=== PATIENT | female | born 1995 | race Two or more races ===

== ENCOUNTER 2023-11-18 23:58 | Emergency (ER) | payer MEDICAID ==
[~2023-11-18] VITALS: Ht 160 cm; Wt 79.0 kg
[2023-11-19] MEDS: DexAMETHasone SOD PHOS 10MG/1ML VIAL INJ IM ONE (00:30)
[2023-11-19 00:47] LABS: Urine Bacteria None Seen /hpf (None Seen)
[2023-11-19 00:52] LABS: Basophils # (auto) 0.1 10 ^3/uL (0-0.2); Basophils % (auto) 0.4 % (0.0-2.0); Eosinophils # (auto) 0.3 10 ^3/uL (0-0.8); Eosinophils % (auto) 2.4 % (0.0-7.0); Hematocrit 38.3 % (36.0-46.0); Hemoglobin 13.4 g/dL (12.2-16.2); Lymphocytes # (auto) 1.9 10 ^3/uL (0.4-5.4); Lymphocytes % (auto) 15.6 % (10.0-50.0); Mean Corpuscular Hemoglobin 31.9 pg (28.0-32.0); Mean Corpuscular Hgb Conc. 34.9 g/dL (32.0-36.0); Mean Corpuscular Volume 91.2 fL (80.0-100.0); Monocytes # (auto) 1.2 10 ^3/uL (0-1.3); Neutrophils # (auto) 8.6 10 ^3/uL (1.6-8.6); Neutrophils % (auto) 71.6 % (37.0-80.0); Nucleated Red Blood Cells % 0.1 %; Red Cell Distribution Width 12.1 % (11.8-14.3)
[2023-11-19 01:08] LABS: Alanine Aminotransferase 44 U/L (7-40); Albumin 4.5 g/dL (3.2-4.8); Alkaline Phosphatase 63 U/L (46-116); Anion Gap 7 (5-15); Aspartate Aminotransferase 19 U/L (13-40); BUN/Creatinine Ratio 12.8 (10.0-20.0); Blood Urea Nitrogen 10 mg/dL (9-23); Calcium 9.5 mg/dL (8.7-10.4); Carbon Dioxide 23 mmol/L (20-30); Chloride 106 mmol/L (98-107); Glucose 116 mg/dL (74-106); Potassium 3.9 mmol/L (3.5-5.1); Sodium 136 mmol/L (136-145)
[2023-11-19 01:09] LABS: Urine Blood 3+ /uL (Negative); Urine Clarity Ex.Turbid (Clear); Urine Color Light-Red (Yellow); Urine Mucus FEW (None Seen); Urine Protein, UAD 1+ (Negative); Urine Specific Gravity 1.038 (1.001-1.035); Urine Urobilinogen Normal (Negative); Urine WBC 207 /hpf (0 - 5); Urine WBC Clumps PRESENT /hpf (None Seen); Urine pH 5.5 (5.0-9.0)
[2023-11-19 01:09] LABS: Bilirubin, Total 0.8 mg/dL (0.2-1.0)
[2023-11-19] MEDS: IPRATROPIUM BROM 0.5 MG/2.5ML INH SOL NEB ONE (01:09)
[2023-11-19] MEDS: ALBUTEROL SULF 2.5 MG/0.5ML(0.5%) NEB SOLN NEB ONE (01:09)
[2023-11-19] MEDS: ACETAMINOPHEN 500 MG TAB PO ONE (01:30)
[2023-11-19] MEDS: SULFAMETHOX W/TRIMETH(800/160MG) DS TAB PO ONE (01:30)
[2023-11-19] MEDS ORDERED: ALBU108A5 IN (01:34)
[2023-11-19] MEDS ORDERED: ACET500T58 PO (01:34)
[2023-11-19] MEDS ORDERED: BACDST PO (01:37)
[2023-11-19 02:41] VITALS: BP 147/90; PULSE 113; RESP 20; TEMP 100.4; O2SAT 98
== END 2023-11-19 02:40 | disposition home or self-care (01) ==
LOC: ER 23:58
DX: N93.8 Other specified abnormal uterine and vaginal bleeding (principal); R10.2 Pelvic and perineal pain; J06.9 Acute upper respiratory infection, unspecified; N39.0 Urinary tract infection, site not specified
CPT/HCPCS: 36415; 71045; 80053; 81001; 84702; 85025; 94640; 96372; 99284; J1100; J7644

== ENCOUNTER 2025-06-23 11:25 | Emergency (ER) | payer MEDICAID ==
[~2025-06-23] VITALS: Ht 160 cm; Wt 83.6 kg
[~2025-06-23 11:25] MED LIST: ACET500T58 PO; ALBU108A5 IN; BACDST PO
--- NOTE | 2025-06-23 11:34 | ECG ---
[facility] Test Date: 2025-06-23 Test Time: 11:32:02 Pat Name: STEPAN CARTY Department: Room: Gender: F Biology Intern: JACKIE : 1995 Requested By: JUSTINE MÉNDEZ Order Number: [id number] Reading MD: Sushil Blanco Measurements Intervals [place] Rate: 74 P: 28 ID: [id number] QRS: 35 QRSD: 87 T: 24 QT: 400 QTc: 444 Interpretive Statements Sinus rhythm Electronically Signed On 06-23-2025 15:09:59 PST by Sushil Blanco Please click the below link to view image of tracing.
--- NOTE | 2025-06-23 12:10 | DVH ---
CLINICAL HISTORY: chest pain TECHNIQUE: Single view of the chest was obtained. COMPARISON: XY CHEST PORTABLE on DOS: 11/19/23 FINDINGS: The heart size and pulmonary vasculature are normal. The lungs are clear. IMPRESSION: NO ACUTE CARDIOPULMONARY PROCESS.
--- NOTE | 2025-06-23 12:25 | ED.PDOC ---
HPI Comments 30 year old female presents to the ED with a chief compliant of chest pain onset 2 days. Patient states she has been experiencing chest pain as well as dizziness, nausea, sweats for the past 2 days. She describes chest pain as a burning sensation, radiates to her back and LT arm. Denies fever, chills, shortness of breath, numbness/tingling, headache, blurred vision, nausea, vomiting. No other symptoms or modifying factors present at this time. Chief Complaint: Chest Pain Time Seen by MD: 12:20 Reviewed Notes: Medications, Allergies Allergies: Coded Allergies: NO KNOWN ALLERGIES (Unverified , 11/19/23) Home Meds Active Scripts Sulfamethoxazole W/Trimethopri (Bactrim Ds Tablet) 1 Tab Tb, 1 TAB PO BID for 10 Days, #20 TAB Prov:PARTH HAZEL [facility] 11/19/23 Albuterol Sulfate (Albuterol Sulfate Hfa) 108 Mcg/Act Aer, 108 MCG IN Q4HP PRN, #1 AER Prov:PARTH HAZEL [facility] 11/19/23 Acetaminophen (Acetaminophen) 500 Mg Tab, 500 MG PO Q4HP PRN, #30 TAB Prov:PARTH HAZEL [facility] 11/19/23 Information Source: Patient Mode of Arrival: Ambulatory Severity: Moderate Timing: Days Duration: Since onset Prehospital treatment: None Location: Chest (L) Radiation: Back, Arm (L) Quality: Burning Onset: At Rest Cardiac Risk Factors: None PE Risk Factors: None History of: None Modifying Factors: Nothing Associated Signs and Symptoms: Back Pain Past Medical History PAST MEDICAL HISTORY: Denies Surgical History: Denies all surgeries 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 History Family History Family History: Reviewed,noncontributory to illness, No family hx of Cancer, No family hx of DM, No family hx of Heart susan, No family hx of HTN, No family hx ofKidney susan, No family hx of Liver susan, No family hx of Lung susan, No family hx of Stroke Social History Smoker: Non-Smoker Alcohol: Denies ETOH Use Drugs: Denies Drug Use Lives In: Home Constitutional: reports: sweats; denies: chills, diaphoresis, fatigue, fever, malaise, weakness, others EENTM: denies: blurred vision, double vision, ear bleeding, ear discharge, ear drainage, ear pain, ear ringing, eye pain, eye redness, hearing loss, mouth pain, mouth swelling, nasal discharge, nose bleeding, nose congestion, nose pain, photophobia, tearing, throat pain, throat swelling, voice changes, others Respiratory: denies: cough, hemoptysis, orthopnea, SOB at rest, shortness of breath, SOB with excertion, stridor, wheezing, others Cardiovascular: reports: chest pain; denies: dizzy spells, diaphoresis, Dyspnea on exertion, edema, irregular heart beat, left arm pain, lightheadedness, palpitations, PND, syncope, others Gastrointestinal: reports: nausea; denies: abdomen distended, abdominal pain, blood streaked bowels, constipated, diarrhea, dysphagia, difficulty swallowing, hematemesis, melena, poor appetite, poor fluid intake, rectal bleeding, rectal pain, vomiting, others Genitourinary: denies: abnormal vagina bleeding, burning, dyspareunia, dysuria, flank pain, frequency, hematuria, incontinence, pain, , vagina discharge, urgency, others Neurological: denies: dizziness, fainting, headache, left sided numbness, left sided weakness, numbness, paresthesia, pre-existing deficit, right sided numbness, right sided weakness, seizure, speech problems, tingling, tremors, weakness, others Musculoskeletal: reports: back pain, others (LT arm pain); denies: gout, joint pain, joint swelling, muscle pain, muscle stiffness, neck pain Integumetry: denies: bruises, change in color, change in hair/nails, dryness, l aceration, lesions, lumps, rash, wounds, others Allergic/Immunocompromised: denies: Difficulty Healing, Frequent Infections, Hives, Itching, others Hematologic/Lymphatic: denies: anemia, blood clots, easy bleeding, easy bruising, swollen glands, others Endocrine: denies: excessive hunger, excessive sweating, excessive thirst, excessive urination, flushing, intolerance to cold, intolerance to heat, unexplained weight gain, unexplained weight loss, others Psychiatric: denies: anxiety, bipolar disorder, depression, hopeless, panic disorder, schizophrenia, sleepless, suicidal, others All Other Systems: Reviewed and Negative Physical Exam General Appearance: Moderate Distress, Normal HEENT: Normal ENT Inspection, Pharynx Normal, TMs Normal Neck: Full Range of Motion, Non-Tender, Normal, Normal Inspection Respiratory: Chest Non-Tender, Lungs Clear, No Accessory Muscle Use, No Respiratory Distress, Normal Breath Sounds Cardiovascular: No Edema, No JVD, No Murmur, No Gallop, Normal Peripheral Pulses, Regular Rate/Rhythm Breast Exam: Deferred Gastrointestinal: No Organomegaly, Non Tender, No Pulsatile Mass, Normal Bowel Sounds, Soft Genitalia: Deferred Pelvic: Deferred Rectal: Deferred Extremities: No calf tenderness, Normal capillary refill, Normal inspection, Normal range of motion, Non-tender, No pedal edema Musculoskeletal : Apperance: Normal Neurologic: Alert, 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 Was a procedure done?: No CP Differential Dx Differential Diagnosis: A-fib, A-Flutter, Angina, Anxiety / Panic Attack, Atrial Dysrhythmia, Electrolyte Disorder X-Ray, Labs, Meds, VS Vital Signs Date Time Temp Pulse Resp B/P (MAP) Pulse Ox O2 Delivery O2 Flow Rate FiO2 06/23/25 16:10 131/91 06/23/25 15:36 97.9 106 20 119/80 (93) 99 97.9 06/23/25 13:14 98.1 70 16 129/61 (83) 100 98.1 06/23/25 12:34 69 06/23/25 12:25 74 06/23/25 11:32 74 06/23/25 11:28 98.2 77 16 124/83 96 98.2 Lab Test 06/23/25 14:20 06/23/25 12:46 06/23/25 11:37 Range/Units Urine Color Yellow Yellow Urine Clarity Turbid H Clear Urine pH 5.5 5.0-9.0 Urine Specific [place] 1.026 1.001-1.035 Urine Protein Trace H Negative Urine Ketones Negative Negative Urine Blood Negative Negative /uL Urine Nitrite Negative Negative Urine Bilirubin Negative Negative Urine Urobilinogen Normal Negative mg/dL Urine Leukocyte Esterase 2+ Negative /uL Urine RBC 5 0 - 4 /hpf Urine Microscopic WBC 7 H 0-5 /HPF Urine Squamous Epithelial Cells Mod <5 /hpf Urine Bacteria Few H None Seen /hpf Urine Mucus Few None Seen Urine Glucose Normal Normal mg/dL Troponin I High Sensitivity < 3 L < 3 L < 3 L </=34 ng/L White Blood Count 6.9 4.4-10.8 10^3/uL Red Blood Count 5.03 4.0-5.20 10^6/uL Hemoglobin 16.0 12.2-16.2 g/dL Hematocrit 46.5 H 36.0-46.0 % Mean Corpuscular Volume 92.3 80.0-100.0 fL Mean Corpuscular Hemoglobin 31.9 28.0-32.0 pg Mean Corpuscular Hemoglobin Concent 34.5 32.0-36.0 g/dL Red Cell Distribution Width 11.9 11.8-14.3 % Platelet Count 294 140-450 10^3/uL Mean Platelet Volume 7.9 6.9-10.8 fL Neutrophils (%) (Auto) 66.4 37.0-80.0 % Lymphocytes (%) (Auto) 25.8 10.0-50.0 % Monocytes (%) (Auto) 6.5 0.0-12.0 % Eosinophils (%) (Auto) 0.9 0.0-7.0 % Basophils (%) (Auto) 0.4 0.0-2.0 % Neutrophils # (Auto) 4.6 1.6-8.6 10 ^3/uL Lymphocytes # (Auto) 1.8 0.4-5.4 10 ^3/uL Monocytes # (Auto) 0.4 0-1.3 10 ^3/uL Eosinophils # (Auto) 0.1 0-0.8 10 ^3/uL Basophils # (Auto) 0 0-0.2 10 ^3/uL Nucleated Red Blood Cells 0.0 % Sodium Level 144 136-145 mmol/L Potassium Level 4.1 3.5-5.1 mmol/L Chloride Level 107 98-107 mmol/L Carbon Dioxide Level 29 20-31 mmol/L Anion Gap 8 5-15 Blood Urea Nitrogen 10 9-23 mg/dL Creatinine 0.73 0.550-1.02 mg/dL Glomerular Filtration Rate Calc 113 >90 mL/min BUN/Creatinine Ratio 13.7 10.0-20.0 Serum Glucose 102 74-106 mg/dL Calcium Level 9.4 8.7-10.4 mg/dL Current Medications Medications (Trade) Dose Ordered Sig/Ellyn Route Start Time Stop Time Status Last Admin Aspirin 325 mg ONCE ONCE PO 06/23/25 11:45 06/23/25 11:46 DC 06/23/25 16:10 Nitroglycerin (Ntrostat Sublingual) 0.4 mg ONCE ONCE SL 06/23/25 11:45 06/23/25 11:46 DC 06/23/25 16:10 [place] [id number] Ph: [phone] DIAGNOSTIC IMAGING Diagnostic Imaging Report : [id number] Signed PATIENT: STEPAN CARTY ACCT: [id number] UNIT: [id number] : 1995 LOC: ER ROOM / BED: / AGE / SEX: 30 / F ADM STATUS: REG ER SERVICE 1127 ORDERING PHYSICIAN: JUSTINE MÉNDEZ MD PROCEDURE(s): CXRP - CHEST PORTABLE REASON: chest pain ORDER NUMBER(s): [id number], ACCESSION NUMBER(s): [id number] CLINICAL HISTORY: chest pain TECHNIQUE: Single view of the chest was obtained. COMPARISON: XY CHEST PORTABLE on DOS: 11/19/23 FINDINGS: The heart size and pulmonary vasculature are normal. The lungs are clear. IMPRESSION: NO ACUTE CARDIOPULMONARY PROCESS. ATED BY: MIRANDA EVANS MD DICTATED DATE/TIME: 06/23/251206 SIGNED BY: MIRANDA EVANS MD SIGNED DATE/TIME: 06/23/25 120 CC: Patient alert. Complaining of chest discomfort. Vitals stable. Answering questions. Chest x-ray reviewed does not show any acute changes. Was given aspirin. Possible anxiety related. [place] neurological exam. No risk factors for coronary artery disease. EKG reviewed does not show any acute changes. UA shows UTI. Was given prescription of Macrobid antibiotic. Explained to the patient. Was told to follow up with her primary care physician. Was told to come back if there is any problem. Time of 1ST Reevaluation: 12:50 Reevaluation 1ST: Unchanged Patient Education/Counseling: Diagnosis, Treatment, Prognosis Family Education/Counseling: No Family Present SEPSIS Sepsis Screen Date sepsis recognized/suspect: Jun 23, 2025 Time Sepsis recognized/suspect: 1127 Recent Procedure: No On Antibiotic Therapy: No Respiratory Rate >20: No Heart Rate >90: No Temp<36 C (96.8 F) or >38.3 C: No SBP <90 or MAP <65 mmHG: No New Acute Mental Status Change: No Is the patient on CPAP, BIPAP,: No Physician Orders Chest Portable (06/23/25 11:27) Electrocardigram (06/23/25 11:27) Electrocardigram (06/23/25 12:27) Electrocardigram (06/23/25 14:27) Vital Signs Date Time Temp Pulse Resp B/P (MAP) Pulse Ox O2 Delivery O2 Flow Rate FiO2 06/23/25 16:10 131/91 06/23/25 15:36 97.9 106 20 119/80 (93) 99 97.9 06/23/25 13:14 98.1 70 16 129/61 (83) 100 98.1 06/23/25 12:34 69 06/23/25 12:25 74 06/23/25 11:32 74 06/23/25 11:28 98.2 77 16 124/83 96 98.2 Laboratory Tests Test 06/23/25 11:37 White Blood Count 6.9 10^3/uL (4.4-10.8) Medications Medications Dose Ordered Sig/Ellyn Route Start Time Stop Time Status Last Admin Dose Admin Aspirin 325 mg ONCE ONCE PO 06/23/25 11:45 06/23/25 11:46 DC 06/23/25 16:10 Nitroglycerin 0.4 mg ONCE ONCE SL 06/23/25 11:45 06/23/25 11:46 DC 06/23/25 16:10 Departure 1 Departure Time of Disposition: 13:48 Impression: Primary Impression: Musculoskeletal chest pain Additional Impressions: Anxiety UTI (urinary tract infection) Qualified Codes: N30.00 - Acute cystitis without hematuria Disposition: 01 HOME / SELF CARE / HOMELESS Condition: Good e-Prescriptions Nitrofurantoin Monohydrate Mac (Macrobid) 100 Mg Cap 100 MG PO BID for 7 Days, #14 CAP Prov: JUSTINE MÉNDEZ MD 06/23/25 Discharged With: Self Critical Care Note Critical Care Time?: No Stability Stability form required: No Heart Score Heart Score: Heart Score Response (Comments) Value History N/A 0 EKG N/A 0 Age N/A 0 Risk Factors N/A 0 Troponin N/A 0 Total 0 I personally scribed for JUSTINE MÉNDEZ MD ([email or web address]) on 06/23/25 at 12:25. Electronically submitted by Valerie Montes ([email or web address]). I personally scribed for JUSTINE MÉNDEZ MD ([email or web address]) on 06/23/25 at 12:32. Electronically submitted by Valerie Montes ([email or web address]). JUSTINE MÉNDEZ MD Jun 23, 2025 12:25
[2025-06-23 12:28] LABS: Chloride 107 mmol/L (98-107); Potassium 4.1 mmol/L (3.5-5.1); Sodium 144 mmol/L (136-145)
[2025-06-23 12:29] LABS: Anion Gap 8 (5-15); Calcium 9.4 mg/dL (8.7-10.4); Carbon Dioxide 29 mmol/L (20-31)
[2025-06-23 12:32] LABS: Hematocrit 46.5 % (36.0-46.0); Hemoglobin 16.0 g/dL (12.2-16.2); Mean Corpuscular Hemoglobin 31.9 pg (28.0-32.0); Mean Corpuscular Volume 92.3 fL (80.0-100.0); Nucleated Red Blood Cells % 0.0 %
[2025-06-23 12:34] LABS: BUN/Creatinine Ratio 13.7 (10.0-20.0); Blood Urea Nitrogen 10 mg/dL (9-23); Glucose 102 mg/dL (74-106)
--- NOTE | 2025-06-23 13:29 | ECG ---
[facility] Test Date: 2025-06-23 Test Time: 12:34:00 Pat Name: STEPAN CARYT Department: Room: Gender: F Roller Inspector: ANA LAURA : 1995 Requested By: JUSTINE MÉNDEZ Order Number: [id number] Reading MD: Sushil Blanco Measurements Intervals [place] Rate: 69 P: 28 [place]: 152 QRS: 39 QRSD: 89 T: 23 QT: 405 QTc: 434 Interpretive Statements Sinus rhythm Electronically Signed On 06-23-2025 15:10:01 PST by Suhsil Blanco Please click the below link to view image of tracing.
[2025-06-23 15:19] LABS: Urine Protein, UAD TRACE (Negative)
[2025-06-23 15:36] VITALS: BP 119/80; RESP 20; TEMP 97.9; O2SAT 99
[2025-06-23] MEDS: NITROGLYCERIN 0.4 MG SL TAB SL ONE (16:10)
[2025-06-23] MEDS ORDERED: NITR-87 PO (16:17)
[2025-06-23 16:34] VITALS: PULSE 75
== END 2025-06-23 16:45 | disposition home or self-care (01) ==
LOC: ER 11:25
DX: R07.89 Other chest pain (principal); F41.9 Anxiety disorder, unspecified; N39.0 Urinary tract infection, site not specified; Z79.899 Other long term (current) drug therapy
CPT/HCPCS: 36415; 71045; 80048; 81001; 84484; 85025; 93005